=== PATIENT | female | born 1975 | race Caucasian/White ===

== ENCOUNTER 2018-08-29 05:12 | Day surgery (SDC) | payer MEDICAID ==
[~2018-08-29] VITALS: Ht 152.4 cm; Wt 49.9 kg
[~2018-08-29 05:12] MED LIST: AUGMENTIN 875-11 TAB PO; [UNRECOGNIZED DRUG - OTHER]
[2018-08-29 06:04] LABS: BASOPHILS 0.6 % (0-2); EOSINOPHILS 3.9 % (0-7); HEMATOCRIT 39.3 % (36.0-48.0); HEMOGLOBIN 13.5 g/dL (12-16); IMMATURE GRANULOCYTES 0.2 % (0-5); LYMPHOCYTES 38.5 % (15-50); MCH 31.3 pg (26.0-34.0); MCHC 34.4 g/dL (31.0-37.0); MCV 91.2 fL (80.0-100.0); MEAN PLATELET VOLUME 9.1 fL (7.4-10.4); MONOCYTES 8.2 % (2-11); NEUTROPHILS 48.6 % (40-80); PLATELET COUNT 260 10x3/uL (130-400); RBC 4.31 10x6/uL (4.00-5.40); RDW 12.9 % (11.5-14.5); WBC 11.1 10x3/uL (4.8-10.8)
[2018-08-29 06:11] VITALS: BP 111/75; Ht 152.4 cm; Wt 49.9 kg
[2018-08-29] MEDS ORDERED: MEPERIDINE HCL50 MG PO (08:55)
--- NOTE | 2018-08-29 12:59 | NUR ---
1145 IV REMOVED 1300 INSTRUCTIONS GIVEN.
== END 2018-08-29 12:10 | disposition home or self-care (01) ==
LOC: D.OPS 05:12 → D.PAN 10:00 → D.OPS 12:10
PROVIDERS: Anesthesiology; ATTEND Podiatrist Foot & Ankle Surgery
DX: L02.611 Cutaneous abscess of right foot (principal); Z01.812 Encounter for preprocedural laboratory examination